=== PATIENT | male | born 1975 | race Caucasian/White ===

== ENCOUNTER 2018-02-05 11:19 | Emergency (ER) | payer OTHER ==
[~2018-02-05] VITALS: Ht 165.1 cm; Wt 87.5 kg
[2018-02-05] MEDS ORDERED: IBUPROFEN 600600 M1 PO (13:17)
[2018-02-05] MEDS ORDERED: HYDROCODONE-AP1 EAC6 PO (13:17)
[2018-02-05 13:29] VITALS: BP 126/67
== END 2018-02-05 13:30 | disposition home or self-care (01) ==
LOC: M.ERS 11:19
DX: S62.634A Displaced fracture of distal phalanx of right ring finger, initial encounter for closed fracture (principal); X58.XXXA Exposure to other specified factors, initial encounter; Y93.89 Activity, other specified; Y92.89 Other specified places as the place of occurrence of the external cause; Y99.8 Other external cause status